=== PATIENT | female | born 1985 | race Caucasian/White ===

== ENCOUNTER 2019-10-12 15:08 | Emergency (ER) | payer MEDICAID ==
[~2019-10-12] VITALS: Ht 160 cm; Wt 103.0 kg
[2019-10-12 15:21] VITALS: Ht 160 cm; Wt 103.0 kg
[2019-10-12 17:00] LABS: CALCIUM 8.9 mg/dL (8.5-10.1); CHLORIDE SERUM 105 mmol/L (98-107); CREATININE SERUM 0.7 mg/dL (0.6-1.0); GFR1 > 60 mL/min; GLUCOSE SERUM 90 mg/dL (74-106); SODIUM SERUM 141 mmol/L (136-145)
[2019-10-12 17:03] LABS: BASOPHIL % 1.8 % (0-2); PLATELET COUNT 243 x10^3mcL (130-400); RED CELL DISTRIBUTION WIDTH 13.1 % (11.5-14.5)
[2019-10-12 17:57] VITALS: BP 146/80
== END 2019-10-12 17:57 | disposition home or self-care (01) ==
LOC: ED 15:08
PROVIDERS: Emergency Medicine
DX: R00.2 Palpitations (principal); R42 Dizziness and giddiness; R53.1 Weakness; J45.909 Unspecified asthma, uncomplicated
CPT/HCPCS: 36415